=== PATIENT | male | born 1930 | race Caucasian/White ===

== ENCOUNTER 2018-10-04 21:19 | Inpatient (IN) ==
[2018-10-04 22:23] LABS: BASO# 0.03 X1000 (0.0-0.2); BASO% 0.4 % (0.0-0.8); EOS# 0.19 X1000 (0.0-0.7); EOS% 2.6 % (0.0-10.0); HEMATOCRIT 41.8 % (42.0-52.0); HEMOGLOBIN 12.7 g/dL (14.0-18.0); IMM GRAN# 0.02 X1000 (0.0-0.04); IMM GRAN% 0.3 % (0.0-0.5); LYMPH# 1.84 X1000 (1.2-3.4); MCH 29.2 PG (27-31); MCHC 30.4 g/dL (33-37); MCV 96.1 FL (81-99); MONO# 0.74 X1000 (0.11-0.59); MONO% 10.1 % (1.7-9.3); MPV 10.1 FL (7.4-10.4); NEUT# 4.54 X1000 (1.4-6.5); NEUT% 61.6 % (42.2-75.2); PLT 191 X1000 (130-400); RBC 4.35 XMIL (4.7-6.1); RDW 13.6 % (11.5-14.5); WBC 7.36 X1000 (4.8-10.8)
[2018-10-04 22:32] LABS: ALB/GLOB RATIO 0.9; CALCIUM 8.9 mg/dL (8.8-10.2); CREATININE 1.4 mg/dL (0.7-1.2); POTASSIUM 5.4 mmol/L (3.5-5.1); TOTAL BILIRUBIN 0.31 mg/dL (0.20-1.00); TOTAL PROTEIN 8.5 g/dL (6.3-8.3)
[2018-10-04] MEDS ORDERED: CLINDAMYCIN 900 MG/D5W 900 MG/50 ML IVPB IV ONE (23:00)
[2018-10-04] MEDS ORDERED: CLINDAMYCIN 900 MG/NS 900 MG/50 ML IVPB IV ONE (23:53)
[2018-10-04] MEDS ORDERED: LEVAQUIN 750 MG in NS 150 ML IV ONE (23:53)
[2018-10-05] MEDS ORDERED: LEVAQUIN 750 MG/D5W 750 MG/150 ML IVPB IV ONE (01:00)
--- NOTE | 2018-10-05 01:41 | PROVIDER DOCUMENTATION ---
This chart was entered by Flory Adame Scribe, acting as scribe for Cici Arboleda DO. HPI-General Adult - General Chief Complaint: General Adult Stated Complaint: HEEL INJURY Time Seen by Provider: 10/04/18 22:49 Source: patient Allergies/Adverse Reactions: Patient Allergies Allergy/AdvReac Type Severity Reaction Status Date / Time No Known Allergies Allergy Verified 10/12/16 12:42 Home Medications: Home Medication List Medication Instructions Recorded Confirmed Last Taken Type Aspirin EC 81 mg PO DAILY 10/16/13 10/12/16 10/12/16 History Losartan [Cozaar] 25 mg PO DAILY 10/12/16 10/12/16 10/12/16 History Arformoterol Neb [Brovana Neb] 15 microgm INH RTQ12H #60 neb 10/14/16 Unknown Rx Ipratropium Potter Neb [Atrovent 0.5 mg INH RTQ8H #90 neb 10/14/16 Unknown Rx Neb] - History of Present Illness -Gen Adult Nature of Presenting Problems: 87yom presents with L heel ulcer for one month. He reports that he scrapped his L heel a month ago, and it did not heal. He denies pain or any other injury. He is on oxygen via nasal cannula. He denies hx of diabetes. He reports his PCP as Dr. Kin Herrera. He denies fever, chills, nausea, vomiting, diarrhea, cp, and sob. The patient's and daughter are at bedside. Location of Pain/Injury: reports: lower extremity (L heel) Pain Radiation: reports: no radiation Quality of Pain: reports: none Severity: reports: mild Onset/Duration: reports: other (one month) Timing: reports: still present, constant Context/Activities at Onset: reports: none Modifying Factors: improves with: nothing Associated Symptoms: denies: chest pain, diarrhea, fever/chills, nausea, shortness of breath, vomiting Similar Symptoms Previously?: No Recently seen or treated by another doctor?: No Review of Systems - Adult - REVIEW OF SYSTEMS - ADULT Constitutional: denies: chills, fever Eyes: denies: discharge, dry eyes Ears, Nose, Mouth & Throat: denies: ear discharge, ear pain Cardiovascular: denies: chest pain, palpitations Respiratory: denies: cough, shortness of breath Gastrointestinal: denies: abdominal pain, diarrhea, nausea, vomiting Genitourinary: denies: dysuria, hematuria Musculoskeletal: reports: other (L heel ulcer). denies: back pain Integumentary: reports: no symptoms reported Neurological: denies: dizziness/vertigo, headache/migraines Psychiatric: reports: no symptoms reported Endocrine: reports: no symptoms reported Hematologic/Lymphatic: reports: no symptoms reported Allergic/Immunologic: reports: no symptoms reported All Other Systems: Reviewed and Negative Past History - Adult - PAST MEDICAL HISTORY-ADULT Review of Records: reports: Old Records Reviewed, Nursing Assessment Review, Medications Reviewed - PRIOR SURGERIES/PROCEDURES Surgical/Procedure History: reports: none - IMMUNIZATION STATUS Childhood Immunizations: See Nurse Assessment Flu Vaccine: See Nurse Assessment - FAMILY HISTORY Family History: reviewed, not pertinent - SOCIAL HISTORY Smoking: other (former) Substance Use: denies Living Situation: family Physical Exam-General - PHYSICAL EXAM-ADULT Initial Vital Signs Reviewed: Yes - CONSTITUTIONAL General Appearance: alert, no apparent distress - EYES Eyes: PERRL/EOMI, pink conjunctivae - NECK Neck: non-tender, supple - RESPIRATORY Respiratory: chest non-tender, lungs clear, normal breath sounds, no pleuratic chest pain, no respiratory distress, no accessory muscle use - CARDIOVASCULAR Cardiovascular: regular rate, rhythm, no JVD, no murmur - GASTROINTESTINAL (ABDOMEN) Abdominal Exam: normal bowel sounds, non tender, soft - LYMPHATIC Lymphatic: no adenopathy - MUSCULOSKELETAL Back Exam: normal inspection, no CVA tenderness, no vertebral tenderness Extremity: non-tender, swelling (LLE mild), other (L heel: foul smelling 1.5cm diameter oval draining ulcer, scaling on bilateral plantar surface.) Peripheral Pulses: dorsalis-pedis (R): 2+, dorsalis-pedis (L): 2+ - SKIN Integumentary: normal color, warm/dry - NEUROLOGIC Neurologic: grossly normal, no motor/sensory deficits - PSYCHIATRIC Psych/Mental Status: normal mood/affect, normal thought content, normal thought process, oriented x 3 Progress - PLAN OF CARE/RESULTS Progress/Plan/Lab Results: Vital Signs - 8 hr 10/04/18 21:56 Temperature 98.8 F Pulse Rate 89 Respiratory Rate 20 Blood Pressure 128/48 O2 Sat by Pulse Oximetry 93 L Laboratory Results - last 24 hr 10/04/18 10/04/18 22:00 22:00 WBC 7.36 RBC 4.35 L Hgb 12.7 L Hct 41.8 L MCV 96.1 MCH 29.2 MCHC 30.4 L RDW Std Deviation 13.6 Plt Count 191 MPV 10.1 Immature Gran % (Auto) 0.3 Neut % (Auto) 61.6 Lymph % (Auto) 25.0 Cowley % (Auto) 10.1 H Eos % (Auto) 2.6 Baso % (Auto) 0.4 Immature Gran # (Auto) 0.02 Neut # (Auto) 4.54 Lymph # (Auto) 1.84 Cowley # (Auto) 0.74 H Eos # (Auto) 0.19 Baso # (Auto) 0.03 Sodium 144 Potassium 5.4 H Chloride 101 Carbon Dioxide 34 Anion Gap 9 BUN 46 H Creatinine 1.4 H Estimated GFR/1.73 m2 48 BUN/Creatinine Ratio 33 Glucose 121 H Calculated Osmolality 300 Calcium 8.9 Total Bilirubin 0.31 AST 20 ALT 15 Alkaline Phosphatase 68 Total Protein 8.5 H Albumin 4.0 Globulin 4.5 Albumin/Globulin Ratio 0.9 Orders Category Date Time Status CBC WITH DIFF [HEME] Stat Lab 10/04/18 22:00 Completed CMP [COMPREHENSIVE METABOLIC PANEL] [CHEM] Stat Lab 10/04/18 22:00 Completed Clinically stable while here. Started on Levaquin and Clinda. No leucocytosis noted. I do not see obvious osteomyelitis on his xray. I feel he will need aggressive IV abx and is still high risk for worsening. He and family voiced understanding. He was admitted to the hospitalist service. Result Diagrams: 10/04/18 22:00 10/04/18 22:00 - XRAY 1 XRAY: Left XRAY Study: Foot Impression: Abnormal (No fracture, no obvious lytic lesions) Departure - Departure Date of Disposition Decision: 10/05/18 Time of Disposition Decision: 01:00 DIAGNOSIS: Foot ulcer Qualifiers: Laterality: left Non-pressure ulcer stage: with fat layer exposed Qualified Code(s): L97.522 - Non-pressure chronic ulcer of other part of left foot with fat layer exposed Disposition: ADMITTED INPATIENT 09 Certified Medical Emergency: Emergent Condition: Stable Additional Freetext Instructions: ED Follow Up Instructions: You have been treated by a care provider in the Emergency Department. These instructions are being provided to you so you can have an understanding of how to care for yourself upon discharge. Upon discharge from the Emergency Department, you are responsible for making arrangements for follow-up care by a physician of your choice. Take all prescribed medications as directed. Return to the Emergency Department immediately for any new or worsening symptoms. You may call the Physician Referral phone number at [phone] to obtain a list of Physicians who are taking new patients. Referrals and Follow-Ups: Christ Herrera MD [Primary Care Provider] - - Critical Care Note This patient required my direct & personal management of CC.: No Attestation - Physician/ SAI Attestation Patient care was provided by Advanced Practice Provider:: No The physician spent face to face time with patient:: Yes Advanced Practice Provider documentation review:: Supervising physician onsite and consulted in the evaluation and care of this patient. The physician did have a face to face encounter with the patient. This chart was documented by the indicated scribe, (Flory Adame Scribe) and accurately reflects the services I performed and decisions made by me, Cici Arboleda DO, as attested by the provider's signature.
[2018-10-05] MEDS: DUONEB (A & A) INH SCH ×3 (03:51→11:10)
[2018-10-05] MEDS ORDERED: NS 1,000 ML IV ONE (03:51)
[2018-10-05] MEDS ORDERED: TYLENOL PO PRN (03:51)
[2018-10-05] MEDS ORDERED: ZOFRAN IV PRN (03:51)
--- NOTE | 2018-10-05 05:37 | HISTORY AND PHYSICAL ---
PRIMARY CARE PHYSICIAN: Dr. Gene Herrera. CHIEF COMPLAINT: Heel decubitus. HISTORY OF PRESENTING ILLNESS: An 87-year-old male with a history of hypertension, COPD on home oxygen, who had presented to the emergency department with a complaint of worsening pain and drainage from a heel ulcer on his left foot. Apparently, he states that it has started having some foul order to it, and was oozing. He was evaluated in the emergency department, and due to his presenting symptoms, it was thought that he would need admission for further management. At the time of my examination, he denied any headache, fever, chills, chest pain, shortness of breath, hemoptysis, or any weight changes, but complained of heel draining. PAST MEDICAL HISTORY: Includes hypertension, COPD. PAST SURGICAL HISTORY: Partial right lobectomy, left knee surgery, hernia repair. ALLERGIES: No known drug allergies. CURRENT MEDICATIONS: As listed in the medication reconciliation sheet. SOCIAL HISTORY: No history of alcohol or illicit drug use. FAMILY HISTORY: Positive for coronary disease in mother. REVIEW OF SYSTEMS: Fourteen point review of systems listed as in HPI. Other systems negative. PHYSICAL EXAMINATION: GENERAL: Cooperative, friendly elderly male. He is resting comfortably now. VITAL SIGNS: Temperature 98.8 degrees, pulse 89, respirations 20, blood pressure 128/48. HEENT: Atraumatic, normocephalic. Extraocular movements intact. PERRLA. NECK: Supple. CHEST: Clear to auscultation. CARDIOVASCULAR: Regular rate and rhythm. ABDOMEN: Soft. Positive bowel sounds. EXTREMITIES: Left heel has a stage III decubitus. : No bladder distention. NEUROLOGIC: Nonfocal. SKIN: Warm. LABORATORIES AND STUDIES: WBCs 7.36, hemoglobin 12.7, hematocrit 41.8 platelets 191. Sodium 144, potassium 5.4, chloride 101. CO2 is 34, BUN is 46, creatinine is 1.4. Glucose 121. ASSESSMENT: An 87-year-old male with a history of hypertension and COPD, who had presented to the emergency department with 6 weeks' history of worsening pain and drainage from his left heel. He was evaluated in the emergency department, and due to his presenting symptoms, he will need admission for further management. ASSESSMENT: 1. Left heel decubitus. 2. Chronic obstructive pulmonary disease. 3. Hypertension. PLAN: 1. We will admit patient to medical floor with telemetry. 2. We will continue with wet-to-dry dressings. 3. We will consult General Surgery for possible debridement. 4. Will continue patient on IV antibiotics. 5. Continue with DuoNebs and supplemental oxygen. 6. We will monitor blood pressure closely. 7. Will put patient on DVT prophylaxis with heparin. 8. We will continue to follow and reassess, and make further recommendation based on patient's clinical course. cc: Larry Mayorga MD
--- NOTE | 2018-10-05 06:07 | Diag Imaging Result Doc PS360 ---
EXAM: FOOT 2 VIEWS LEFT HISTORY: FOOT ULCER. ?OSTEO TECHNIQUE: Left foot, two views COMPARISON: None. FINDINGS: No fracture. No dislocation. There is narrowing to the first metatarsal phalangeal joint. The bones are osteopenic. Tiny calcaneal bone spurs in the periosteal reaction. No definite bone erosion. IMPRESSION: No definite plain film evidence of osteomyelitis. If clinical suspicion persists an MRI is recommended. Electronically signed by Alli Taylor 10/05/2018 6:05 AM
--- NOTE | 2018-10-05 09:09 | PROGRESS NOTE ---
DATE: 10/05/2018 SUBJECTIVE: Mr. Philippe has a decubitus ulcer on the left heel which they first noticed 4 to 6 weeks ago. He has had increasing pain and purulent discharge from the wound. The plain film of the left foot demonstrated no bony changes suggestive of osteomyelitis. OBJECTIVE: Vital Signs: Temperature 98.1 degrees, pulse 81, respirations 20, BP 124/50. CV: Regular rate and rhythm with a 2/6 systolic ejection murmur at the left sternal margin. Lungs: Clear. Abdomen: Soft, nontender, with active bowel sounds. Extremities: He has a decubitus ulcer on the left heel with purulent discharge. ASSESSMENT AND PLAN: Nonhealing left decubitus ulcer of the left heel with associated cellulitis. We will obtain a wound culture in addition to blood cultures. I will check a magnetic resonance imaging of the left foot to make sure there is no evidence of osteomyelitis. I will change antibiotics from Levaquin to Zosyn 3.375 grams intravenous every 6 hours. We will consult Dr. Santoyo for consideration of debridement of the wound. If the magnetic resonance imaging of the foot is consistent with osteomyelitis, he will most likely need PICC line placement with intravenous antibiotic for 6 to 8 weeks. If there is no evidence of osteomyelitis, I am hoping that we will be able to discharge him home on oral antibiotics with outpatient wound care pending cultures. cc: Genet Herrera MD
[2018-10-05] MEDS: ZOSYN 3.375 GM in NS 50 ML IV SCH ×3 (09:17→22:51)
[2018-10-05] MEDS: HEPARIN SUBQ SCH ×2 (09:18→22:51)
--- NOTE | 2018-10-05 11:05 | Diag Imaging Result Doc PS360 ---
EXAM: MRI LOW EXT JT W/WO CON-LEFT INDICATION: left heel ulcer r o osteomyelitis TECHNIQUE: COMPARISON: None. FINDINGS: There is focal ulceration at the posterior aspect of the heel medially with surrounding edema and enhancement consistent with cellulitis. However, there is no underlying bone marrow edema to indicate osteomyelitis. There is no evidence of osteomyelitis involving the remaining visualized bony structures. There is soft tissue edema without enhancement at the dorsum of the forefoot. The visualized tendinous structures of the ankle and foot are grossly intact. IMPRESSION: Ulceration and edema at the posterior medial aspect of the heel indicating cellulitis but no evidence of osteomyelitis. Electronically signed by Zander Cade 10/05/2018 11:02 AM
[2018-10-05] MEDS ORDERED: SILVER NITRATE APPLICATOR ONE (12:39)
[2018-10-05] MEDS ORDERED: SILVER NITRATE APPLICATOR TOP ONE (12:41)
[2018-10-05 16:20] LABS: HEMOGLOBIN A1C 5.4 % (4.8-6.0)
[2018-10-05] MEDS ORDERED: ATROVENT NEB INH SCH (17:00)
[2018-10-05] MEDS: BROVANA NEB INH SCH (20:09)
[2018-10-05] MEDS ORDERED: BROVANA NEB ONE (20:11)
[2018-10-06] MEDS ORDERED: LEVAQUIN 500 MG/D5W 500 MG/100 ML IVPB IV SCH (02:00)
[2018-10-06] MEDS: ZOSYN 3.375 GM in NS 50 ML IV SCH ×4 (02:46→20:00)
--- NOTE | 2018-10-06 04:23 | OPERATIVE NOTE ---
PROCEDURE DATE: 10/05/2017 PREOPERATIVE DIAGNOSIS: Nonhealing left heel ulcer. POSTOPERATIVE DIAGNOSIS: Nonhealing left heel ulcer. PROCEDURE: Debridement of skin and subcutaneous tissue of less than 20 square cm. SURGEON: Dr. Rajendra Simmons. ANESTHESIA: None. ESTIMATED BLOOD LOSS: 10 mL. COMPLICATIONS: None apparent. FINDINGS: A 1 x 1 cm ulcer of the left medial heel without exposed bone, but there was some necrotic subcutaneous fat. TECHNIQUE: The wound was prepped with Betadine. A 10 blade and scissors were used to sharply debride the edges of the wound back to healthier bleeding edges. He tolerated this well. The wound was packed with gauze. There were no apparent complications. cc: MD Genet Franco MD
--- NOTE | 2018-10-06 04:36 | GENERAL SURGERY CONSULTATION ---
DATE: 10/05/2018 REASON FOR CONSULT: Left heel ulcer. HISTORY OF PRESENT ILLNESS: This is an 87-year-old male who injured his left heel stepping out of his shower about 6 weeks ago. It has not healed. It has been having minimal drainage, but it does have some odor. He has not had really any significant redness or swelling from the wound. He saw Dr. Wang who performed a debridement, but had not had any followup with him. PAST MEDICAL HISTORY: Hypertension COPD, right lung cancer. PAST SURGICAL HISTORY: Right lower lobectomy, left knee replacement, inguinal hernia repair. ALLERGIES: No known drug allergies. SOCIAL HISTORY: Negative tobacco, alcohol, or illicit drug use. FAMILY HISTORY: Positive for coronary artery disease. HOME MEDICATIONS: Aspirin, Atrovent. REVIEW OF SYSTEMS: Ten systems reviewed and negative except as noted above. PHYSICAL EXAMINATION: Vital Signs: Temperature 98.1 degrees, pulse 81, respirations 20, blood pressure 124/50, O2 saturation 95%. General: Elderly male who looks his stated age, in no acute distress. HEENT: Normocephalic, atraumatic. Extraocular muscles intact. Pupils equal, round, and reactive to light. Sclerae anicteric. Neck: Supple. No thyromegaly. Cardiovascular: Regular rate and rhythm. Respiratory: Bilaterally equal breath sounds. No work of breathing. Gastrointestinal: Soft, nontender, nondistended. No organomegaly. Musculoskeletal: Moves all extremities equally and well. Skin: Warm and dry. No rash. Extremities: The left heel has an open wound with some slight odor to it, and seropurulent discharge. I probed the wound. It does not probe all the way down to the bone, but it is into the subcutaneous fatty layer. LABORATORY DATA: White cell count 7. IMAGING: Left foot x-ray and MRI reveal ulceration and cellulitis, but no osteomyelitis. ASSESSMENT AND PLAN: An 87-year-old male with left heel ulcer which is nonhealing, chronic obstructive pulmonary disease, and hypertension. I will debride the wound at the bedside today. We will follow up the cultures that have already been obtained and make recommendations for antibiotics with him to go home. I suspect oral antibiotics will be sufficient. We will start silver alginate gauze packing for now. cc: MD Genet Franco MD
[2018-10-06] MEDS ORDERED: BROVANA NEB ONE ×2 (07:18)
[2018-10-06 07:30] LABS: BASO# 0.03 X1000 (0.0-0.2); BASO% 0.4 % (0.0-0.8); EOS% 2.4 % (0.0-10.0); HEMATOCRIT 41.5 % (42.0-52.0); HEMOGLOBIN 12.5 g/dL (14.0-18.0); LYMPH# 2.11 X1000 (1.2-3.4); LYMPH% 25.8 % (20.5-51.1); MCH 28.7 PG (27-31); MCHC 30.1 g/dL (33-37); MCV 95.2 FL (81-99); MONO# 0.61 X1000 (0.11-0.59); MONO% 7.4 % (1.7-9.3); MPV 10.3 FL (7.4-10.4); NEUT# 5.24 X1000 (1.4-6.5); PLT 194 X1000 (130-400); RBC 4.36 XMIL (4.7-6.1); RDW 13.8 % (11.5-14.5); WBC 8.19 X1000 (4.8-10.8)
[2018-10-06 07:51] LABS: CALCIUM 9.2 mg/dL (8.8-10.2); CREATININE 1.4 mg/dL (0.7-1.2); POTASSIUM 4.5 mmol/L (3.5-5.1)
[2018-10-06] MEDS: BROVANA NEB INH SCH ×2 (08:28→19:10)
[2018-10-06] MEDS: ATROVENT NEB INH SCH ×3 (08:29→19:10)
--- NOTE | 2018-10-06 08:30 | PROGRESS NOTE ---
DATE: 10/06/2018 SUBJECTIVE: Mr. Philippe has a longstanding history of essential hypertension. His blood pressure is well controlled. Systolic blood pressures are ranging from 130 to 145, whereas his diastolic blood pressures are in the 70s and 80s. He denies any chest pain, palpitations, or anginal equivalents. He has a history of chronic respiratory failure with hypoxia on chronic home oxygen secondary to COPD. He is breathing comfortably. He is maintaining O2 sats of 93%-96% on 2 L of O2. He was admitted with a decubitus ulcer of the left heel with associated cellulitis. Dr. Simmons performed debridement of skin and subcutaneous tissue at the bed side. The swelling and erythema in the left foot and heel has diminished on IV Zosyn. Blood cultures are pending. Gram stain of the wound culture grew out gram-positive cocci. An MRI of the foot demonstrated no evidence of osteomyelitis. OBJECTIVE: Temperature 98.3, pulse 81, BP 132/59. CV: Regular rate and rhythm with a 2/6 systolic ejection murmur at the left sternal margin. Lungs: Distant breath sounds with increased period of expiration. Abdomen soft, nontender, with active bowel sounds. Extremities: There is an ulcer of the left heel. There is less erythema, swelling, and induration around the ulcer. ASSESSMENT AND PLAN: 1. Hypertension. His blood pressure is stable. We will continue losartan 25 mg daily. 2. Chronic respiratory failure with hypoxia secondary to chronic obstructive pulmonary disease. He is clinically stable. We will continue chronic home oxygen as well as Brovana and ipratropium nebulizer treatments. 3. Decubitus ulcer of the left heel with associated cellulitis. We will continue local wound care and will continue broad-spectrum IV antibiotics pending cultures. At the time of discharge, we will arrange for home health to provide local wound care, and he will follow up with Dr. Simmons at the [facility]. cc: Genet Herrera MD
[2018-10-06] MEDS: ASPIRIN EC PO SCH (09:28)
[2018-10-06] MEDS: HEPARIN SUBQ SCH ×2 (09:28→20:01)
[2018-10-06] MEDS: COZAAR PO SCH (09:28)
[2018-10-06] MEDS ORDERED: VANCOMYCIN 1 GM/NS 1 GM/250 ML IVPB IV ONE (11:52)
--- NOTE | 2018-10-06 23:44 | GENERAL SURGERY PROGRESS NOTE ---
DATE: 10/06/2018 SUBJECTIVE: The patient is doing well. No acute events or complaints overnight. Laboratory reviewed and unremarkable although his wound culture is positive for MRSA presumptively, the sensitivities of the antibiotics are not back yet OBJECTIVE: He is afebrile, vital signs are stable. General he is awake, alert, oriented x3. No acute distress.Extremities: The left heel ulcer was examined. There is minimal purulent drainage and some mild swelling around it. ASSESSMENT/PLAN: 87-year-old male with left heel ulcer positive for methicillin-resistant Staphylococcus aureus, we are awaiting sensitivity profile and will treat the wound with silver alginate gauze packing every other day at home and I will consult for home health. He can follow up with me in the [facility]. cc: MD Genet Franco MD
[2018-10-07] MEDS: ZOSYN 3.375 GM in NS 50 ML IV SCH ×2 (03:40→09:51)
[2018-10-07 08:05] VITALS: BP 144/61
[2018-10-07] MEDS: ATROVENT NEB INH SCH (08:30)
[2018-10-07] MEDS: BROVANA NEB INH SCH (08:30)
[2018-10-07] MEDS: HEPARIN SUBQ SCH (09:52)
[2018-10-07] MEDS: ASPIRIN EC PO SCH (09:52)
[2018-10-07] MEDS: COZAAR PO SCH (09:52)
[2018-10-07] MEDS ORDERED: TETRACYCLINE PO SCH (14:00)
[2018-10-07] MEDS ORDERED: SEPTRA DS PO SCH (21:00)
--- NOTE | 2018-10-07 22:29 | DISCHARGE SUMMARY ---
ADMISSION DATE: 10/05/2018 DISCHARGE DATE: 10/07/2018 DISCHARGE DIAGNOSES: 1. Stage III decubitus ulcer of the left heel with cellulitis. 2. Essential hypertension. 3. History of tobacco abuse. 4. Chronic respiratory failure with hypoxia, on chronic home O2 at 2 L per nasal cannula continuously. 5. Chronic obstructive pulmonary disease. DISCHARGE INSTRUCTIONS: 1. The patient is to return to clinic in 1 week to see me, Dr. Gene Herrera, in anticipation of a transition of care visit. 2. The patient is to follow up with Dr. Rajendra Simmons in 7 to 10 days at the wound Center. 3. Activity as tolerated. 4. Healthy heart diet. MEDICATIONS: O2 at 2 L per nasal cannula continuously, Brovana nebulized b.i.d., ipratropium nebulized t.i.d., losartan 25 mg daily, aspirin 81 mg daily, tetracycline 500 mg q.6 hours for 2 weeks. DISCHARGE PHYSICAL EXAMINATION: General: This is an elderly, frail, 87-year-old gentleman in no apparent distress. He is afebrile. Vital signs: Stable. Cardiovascular: Regular rate and rhythm with a 2/6 systolic ejection murmur. Lungs: Distant breath sounds with increased period of expiration. Abdomen: Soft, nontender, with active bowel sounds. Extremities: He has a stage III decubitus ulcer on the left heel. There is minimal if any discharge. The erythema and swelling around the wound have largely resolved. HOSPITAL COURSE: Mr. Alonzo Philippe was admitted to [facility] with a nonhealing decubitus ulcer of the left heel which was stage III. He had purulent gross discharge from the wound. Necrotic fat tissue was noted. The patient was placed on broad-spectrum antibiotics including Zosyn pending wound and blood cultures. Dr. Rajendra Simmons was consulted to see the patient and performed debridement at the bedside. Wound cultures grew out initially gram-positive cocci and I added vancomycin. The wound cultures demonstrated what appeared to be a community- acquired MRSA that was sensitive to multiple medications including vancomycin, clindamycin, gentamicin, tetracycline and Bactrim. Blood cultures x2 were normal. Daily wound care was provided while hospitalized. The wound was cleaned daily with Vashe and was packed with silver alginate gauze and rewrapped. He improved quickly with aggressive wound care and antibiotics and was transitioned to oral tetracycline. Cook Chef was consulted to see the patient. We have arranged for wound care. The wound was cleaned and repacked with a silver alginate gauze and rewrapped today. He will need to have the wound cleaned with Vashe every 2 days and the heel wound packed with silver alginate every 2 days. Dressing changes we will need to be made every 2 days. The next dressing change should occur on 10/09/2018. We will give him a prescription for tetracycline 500 mg q.6 hours for 2 weeks and he will follow up in the wound care clinic in 7 to 10 days. An MRI of the foot demonstrated no evidence of osteomyelitis. Mr. Philippe has a longstanding history of chronic respiratory failure with hypoxia secondary to COPD. He wears O2 at 2 L per nasal cannula continuously. He was maintained on his home oxygen with his home nebulizers including Brovana nebulized b.i.d. and ipratropium nebulized t.i.d. He maintained good O2 saturations of 92% to 95%. Having reached maximum hospital benefit, the patient was discharged in stable condition. cc: Genet Herrera MD
== END 2018-10-07 11:21 | disposition home health service (06) | DRG 571 ==
LOC: ED 21:19 → SUATTDRO 10-05 01:33 → EDIPHOLD 10-05 01:33 → 3N 10-05 12:45
PROVIDERS: ADMIT Internal Medicine; ATTEND Internal Medicine
CPT/HCPCS: 73620; 73723; 80048; 80053; 82948; 83036; 85025; 87040; 87070; 87077; 87186; 94640; 94761; 96361; 96365; 96367; 96372; 99285; A9270; A9579; J1644; J1956; J2543; J3370; J7030; S0077; XXXXX

== ENCOUNTER 2019-02-23 11:29 | Inpatient (IN) ==
[2019-02-23] MEDS ORDERED: LASIX IV ONE ×2 (13:07→15:37)
[2019-02-23] MEDS ORDERED: SODIUM CHLORIDE 0.9% INJ PRN (13:26)
[2019-02-23] MEDS ORDERED: TYLENOL PO PRN (13:26)
[2019-02-23] MEDS ORDERED: PHENERGAN IV PRN (13:26)
[2019-02-23 13:28] LABS: HEMATOCRIT 44.5 % (42.0-52.0); HEMOGLOBIN 12.9 g/dL (14.0-18.0); MPV 10.5 FL (7.4-10.4); RBC 4.45 XMIL (4.7-6.1); RDW 14.6 % (11.5-14.5); WBC 7.8 X1000 (4.8-10.8)
--- NOTE | 2019-02-23 13:28 | Diag Imaging Result Doc PS360 ---
EXAM: CHEST-PORTABLE HISTORY: acute COPD exacerbation TECHNIQUE: Portable chest COMPARISON: 02/22/2019 FINDINGS: There are tiny pleural effusions. Right hemidiaphragm is elevated. Mild central vascular distention with mild cardiac prominence. No consolidation. IMPRESSION: Mild pulmonary edema with tiny pleural effusions. Electronically signed by Alli Taylor 02/23/2019 1:26 PM
[2019-02-23 13:30] LABS: ALLEN TEST YES; BE 12.8 mmoll (-3.0-3.0); BLOOD TYPE ARTERIAL; HCO3-(ACT) 34.8 mmoll (20.0-26.0); METHB 1.1 % (0.0-1.5); O2(CT) 16.4 mL/dL (15.0-23.0); O2HB 91.2 % (95.0-99.0); PO2(98.6) 60 mmHg (60-100); SAMPLE BLOOD; SAO2 94.3 % (95.0-100.0); THB 12.8 g/dL (11.5-17.4); pH(98.6) 7.29 (7.35-7.45)
[2019-02-23 13:32] LABS: MODALITY CANNULA; PCO2(98.6) 90 mmHg (35-45)
[2019-02-23 13:43] LABS: AGAP 4; BUN 44 mg/dL (8-22); CALCIUM 9.5 mg/dL (8.8-10.2); CHLORIDE 101 mmol/L (98-107); COSMO 303; CREATININE 1.1 mg/dL (0.7-1.2); ESTIMATED GFR > 60; GLUCOSE 152 mg/dL (70-104); POTASSIUM 4.9 mmol/L (3.5-5.1); SODIUM 145 mmol/L (136-145); TCO2 40 mmol/L (25-35)
--- NOTE | 2019-02-23 14:49 | ECHO REPORT ---
ORDER DATE: 02/23/2019 INDICATION FOR THE STUDY: CHF. FINDINGS: 1. The right atrium appears normal in size. 2. Trace tricuspid regurgitation. RV systolic pressure of 30. 3. Normal RV size and systolic function. 4. No significant pulmonic insufficiency. 5. Normal left atrial size at 3.4 cm. 6. No mitral valve prolapse. Trace mitral regurgitation. No mitral stenosis. 7. Normal LV size, end-diastolic dimension of 4.5. Normal wall thicknesses with a posterior and interventricular septal wall thickness of 0.7 and 0.6 cm respectively. Normal LV systolic function. Estimated EF of 65% with normal wall motion. 8. Aortic valve opens well. It is trileaflet. There is no evidence of stenosis or insufficiency. 9. Aorta appears normal in visualized segments. 10. No pericardial effusion seen. cc: MD Genet Taylor MD
[2019-02-23] MEDS: ROCEPHIN 1 GM in NS 50 ML IV SCH (15:12)
[2019-02-23] MEDS: LOVENOX SUBQ SCH (15:13)
[2019-02-23] MEDS: ATROVENT NEB INH SCH ×2 (15:28→22:00)
[2019-02-23] MEDS: ZITHROMAX 500 MG/NS 500 MG/250 ML IVPB IV SCH (17:47)
[2019-02-23] MEDS: SOLU-MEDROL IV SCH (17:47)
[2019-02-23] MEDS ORDERED: CALMOSEPTINE OINTMENT TOP ONE (17:54)
[2019-02-23] MEDS ORDERED: BROVANA NEB ONE (19:34)
[2019-02-23] MEDS: BROVANA NEB INH SCH (20:15)
--- NOTE | 2019-02-23 20:17 | HISTORY AND PHYSICAL ---
CHIEF COMPLAINT: Shortness of breath. Mr. 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 He presented to the ER complaining of increasing shortness of breath, increasing work of breathing, nonproductive cough and lethargy. Family reported that he has been lethargic, difficult to arouse and confused at times. His O2 saturations have frequently dropped into the low 80s even on oxygen. Chest x-ray showed mild interstitial edema and chronic COPD type changes. Upon further questioning he has been sitting up in a chair to breathe, he has had increasing shortness of breath with activity that resolves with rest. He has had increasing peripheral edema. 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 PAST SURGICAL HISTORY: Tonsillectomy with adenoidectomy, appendectomy, inguinal hernia repair, left total knee, cataract surgery. ALLERGIES: SCAR inhibitors. MEDICATIONS: O2 at 3 L per nasal cannula continuously, Brovana nebulized b.i.d., ipratropium nebulized t.i.d. FAMILY HISTORY: Noncontributory. SOCIAL HISTORY: He is a former smoker. He does not consume alcohol. He lives at home with his spouse. REVIEW OF SYSTEMS: He has lost approximately 5 pounds.HEENT: Wears glasses. He is hard of hearing. CV: No chest pain, palpitations or anginal equivalents. Pulmonary: See HPI. Endocrine: No polyuria, no polydipsia. No cold or heat intolerance. Skin: No easy bruisability. : No leakage of urine with coughing or laughing. Neuro: No migraines or seizures. Psychiatric: No history of depression. This is a chronically ill-appearing 88-year-old gentleman in mild distress secondary to shortness of breath. Temperature 98.3 degrees, pulse 73, respiratory rate 22, BP 130/79. HEENT: Fundi with arteriolar wall thickening. Pupils equal, round, reactive to light. Extraocular eye movements intact. TMs without bullae. Neck: Supple. No masses, JVD or bruits. CV: Regular rate and rhythm. Lungs: Diffuse wheezing with forced expiration. There are crackles in the bases. Abdomen: Soft, nontender with active bowel sounds. Extremities: 2+ pitting edema bilaterally. and Rectal: Deferred. Neuro: Nonfocal various. LABS: Various laboratory studies were obtained. CBC demonstrated white count 7.8, hemoglobin 12.9, hematocrit 44.5 and a platelet count 143,000. Electrolytes demonstrated sodium 145, potassium 4.9, BUN 44, creatinine 1.1, glucose 152. ProBNP 150. Arterial blood gases demonstrate a pH of 7.29, PO2 60, bicarb 34, O2 saturation 94.3. ASSESSMENT AND PLAN: 1. Acute on chronic respiratory failure with hypercapnia secondary to acute chronic obstructive pulmonary disease exacerbation. I will admit the patient to [facility]. Because of the mental status changes, confusion and hypoxia I will begin BiPAP with a rate of 15/6, FiO2 40% and a respiratory rate of 14, we will continue Brovana nebulized b.i.d., ipratropium nebulized t.i.d. and begin IV Solu-Medrol as well as broad-spectrum IV antibiotics including Rocephin and Zithromax. I will bolus him with Lasix. I will most likely add Symbicort 160/4.5 two puffs b.i.d. 2. Physical debility. He is very weak. He has difficulty performing activities of daily living at home. I have spoken to his and daughter. We will consult [facility] for consideration of short-term rehab placement. Family is interested in [facility] rehab. 3. End-of-life issues. He does have a living will. In the event of a cardiopulmonary arrest, no heroic measures are to be undertaken. A no code blue level 1 has been established. 4. Given his comorbid conditions and clinical presentation, I believe admission to the hospital is both reasonable and necessary. Attempting to treat him as an outpatient would increase the risk for poor outcome such as . I anticipate that he will be in the hospital for at least 2 midnights and I will therefore place him in inpatient status. We will begin Lovenox 40 mg subcutaneously daily for DVT prophylaxis. cc: Genet Herrera MD
[2019-02-23] MEDS ORDERED: CALMOSEPTINE OINTMENT TOP PRN (20:32)
[2019-02-23] MEDS: CALMOSEPTINE OINTMENT TOP SCH (22:55)
[2019-02-24] MEDS ORDERED: LASIX IV ONE (09:07)
--- NOTE | 2019-02-24 09:33 | Diag Imaging Result Doc PS360 ---
EXAM: CHEST-PORTABLE HISTORY: COPD TECHNIQUE: Portable chest single view COMPARISON: 02/23/2019 FINDINGS: Poor inspiratory effort. The right hemidiaphragm is elevated. Mild vascular distention. Questionable tiny left pleural effusion versus pleural thickening. No consolidation. IMPRESSION: Stable chest Electronically signed by Alli Taylor 02/24/2019 9:31 AM
[2019-02-24] MEDS ORDERED: BROVANA NEB ONE ×2 (10:31→19:35)
[2019-02-24] MEDS: BROVANA NEB INH SCH ×2 (11:14→20:30)
[2019-02-24] MEDS: ATROVENT NEB INH SCH ×3 (11:15→20:30)
[2019-02-24 11:23] LABS: BLOOD TYPE ARTERIAL; SAMPLE BLOOD
[2019-02-24 11:24] LABS: ALLEN TEST YES; BE 17.2 mmoll (-3.0-3.0); HCO3-(ACT) 38.3 mmoll (20.0-26.0); PO2(98.6) 159 mmHg (60-100); SAO2 99.4 % (95.0-100.0); THB 11.5 g/dL (11.5-17.4); pH(98.6) 7.42 (7.35-7.45)
[2019-02-24 11:28] LABS: MODALITY BI PAP; PCO2(98.6) 69 mmHg (35-45)
[2019-02-24] MEDS: ASPIRIN EC PO SCH (11:28)
[2019-02-24] MEDS: CALMOSEPTINE OINTMENT TOP SCH ×4 (11:28→22:14)
[2019-02-24] MEDS: SOLU-MEDROL IV SCH ×3 (11:29→22:09)
[2019-02-24] MEDS: LOVENOX SUBQ SCH (18:09)
[2019-02-24] MEDS: SYMBICORT 160/4.5 MICROGM INHALER INH SCH (20:30)
[2019-02-24] MEDS: ZITHROMAX 500 MG/NS 500 MG/250 ML IVPB IV SCH (22:08)
[2019-02-24] MEDS: ROCEPHIN 1 GM in NS 50 ML IV SCH (22:09)
[2019-02-25] MEDS ORDERED: BROVANA NEB ONE (07:39)
--- NOTE | 2019-02-25 07:40 | PROGRESS NOTE ---
DATE: 02/24/2019 SUBJECTIVE: Mr. Philippe was admitted to [facility] with acute on chronic respiratory failure with hypercapnia secondary to acute COPD exacerbation and pulmonary edema. ABGs demonstrated a pCO2 of 90. We placed him on BiPAP. He is much more alert this morning. He answers questions appropriately. He is oriented to name, place, and time. He is back to his baseline neurologically. OBJECTIVE: Vital Signs: O2 saturations are ranging from 96% to 97% on supplemental O2, temperature 98.6 degrees, pulse 69, respirations 18, BP 133/57. CV: Regular rate and rhythm. Lungs: Distant breath sounds with increased period of expiration. Abdomen: Soft, nontender, with active bowel sounds. Extremities: There is 1+ pitting edema. ASSESSMENT AND PLAN: 1. Acute on chronic respiratory failure with hypercapnia secondary to acute chronic obstructive pulmonary disease exacerbation and acute pulmonary edema. His echocardiogram was grossly normal. We will continue a salt and fluid restricted diet, and I will bolus him with Lasix 40 mg intravenously x1 dose today. We will continue Brovana nebulized twice daily, ipratropium nebulized three times daily, intravenous Solu-Medrol, and I will add Symbicort 160/4.5 two puffs twice daily. I am going to recheck an ABG this morning. If the hypercapnia has resolved, we will try to leave him off bilevel positive airway pressure during the day, and only use bilevel positive airway pressure at night. 2. Physical debility. We will consult Physical Therapy for evaluation. We will consult [facility] for short-term rehab placement. cc: Genet Herrera MD
[2019-02-25 08:16] LABS: CALCIUM 8.6 mg/dL (8.8-10.2); CREATININE 1.2 mg/dL (0.7-1.2); POTASSIUM 5.2 mmol/L (3.5-5.1)
[2019-02-25] MEDS: SYMBICORT 160/4.5 MICROGM INHALER INH SCH ×2 (09:05→19:35)
[2019-02-25] MEDS: BROVANA NEB INH SCH ×2 (09:05→19:35)
[2019-02-25] MEDS: ATROVENT NEB INH SCH ×3 (09:06→19:35)
[2019-02-25] MEDS: ATROVENT NEB ONE ×2 (09:06→09:07)
[2019-02-25] MEDS: ASPIRIN EC PO SCH (09:48)
[2019-02-25] MEDS: CALMOSEPTINE OINTMENT TOP SCH ×4 (09:49→20:24)
--- NOTE | 2019-02-25 10:01 | Diag Imaging Result Doc PS360 ---
EXAM: CHEST-PORTABLE HISTORY: COPD TECHNIQUE: Chest single view COMPARISON: 02/24/2019 FINDINGS: The right hemidiaphragm is elevated. No cardiomegaly. There are increased interstitial markings in the lower left lung. Minimal vascular distention. IMPRESSION: There appears to be a small left basilar infiltrate. Electronically signed by Alli Taylor 02/25/2019 9:59 AM
--- NOTE | 2019-02-25 10:28 | PROGRESS NOTE ---
DATE: 02/25/2019 SUBJECTIVE: Mr. Philippe was admitted to [facility] with acute on chronic respiratory failure with hypercapnia secondary to acute chronic obstructive pulmonary disease exacerbation. He has been wearing BiPAP at night. He is much more alert and easily arousable this morning. He is alert and oriented to name, place, and time. He answers questions appropriately. He wore BiPAP for 5 hours last night. He has been off the BiPAP for approximately 4 hours. He has been breathing comfortably on supplemental O2. OBJECTIVE: O2 saturations are 94% to 95% on 4 L of O2. He is not having any significant cough. He is afebrile. Pulse 88, respirations 16, BP 128/57. Cardiovascular: Regular rate and rhythm. Lungs: Distant breath sounds with increased period of expiration. Abdomen: Soft, nontender, with active bowel sounds. Extremities: 1+ pitting edema. ASSESSMENT AND PLAN: Acute on chronic respiratory failure with hypercapnia secondary to acute chronic obstructive pulmonary disease exacerbation. We will continue Brovana nebulized b.i.d., ipratropium nebulized t.i.d., Symbicort 160 mcg/4.5 mcg 2 puffs b.i.d. and supplemental O2. I will reduce IV Solu-Medrol to 40 mg IV q.12 h. We will continue to increase activity. We will continue physical therapy. We are awaiting short-term rehabilitation placement. cc: Genet Herrera MD
[2019-02-25] MEDS: LOVENOX SUBQ SCH (14:04)
[2019-02-25] MEDS: SOLU-MEDROL IV SCH ×2 (14:05→20:24)
[2019-02-25] MEDS: MELATONIN PO SCH (20:24)
[2019-02-25] MEDS: ROCEPHIN 1 GM in NS 50 ML IV SCH (20:24)
[2019-02-25] MEDS: ZITHROMAX 500 MG/NS 500 MG/250 ML IVPB IV SCH (20:25)
[2019-02-26] MEDS: SOLU-MEDROL IV SCH ×2 (05:55→18:09)
[2019-02-26] MEDS ORDERED: BROVANA NEB ONE (07:28)
[2019-02-26] MEDS: CALMOSEPTINE OINTMENT TOP SCH ×4 (08:00→21:54)
[2019-02-26] MEDS: SYMBICORT 160/4.5 MICROGM INHALER INH SCH ×2 (08:20→20:01)
[2019-02-26] MEDS: BROVANA NEB INH SCH ×2 (08:20→20:01)
[2019-02-26] MEDS: ATROVENT NEB INH SCH ×3 (08:20→20:01)
--- NOTE | 2019-02-26 09:35 | PROGRESS NOTE ---
DATE: 02/26/2019 SUBJECTIVE: Mr. Philippe was admitted to [facility] with acute on chronic respiratory failure with hypercapnia secondary to acute chronic obstructive pulmonary disease exacerbation and pulmonary edema. Clinically, he continues to improve. He is awake and easily arousable. He is oriented to name and place. He is breathing much more comfortably. O2 saturations are ranging from 95% to 98% on 3 L. Chest x-ray shows chronic COPD type changes. He is wearing the BiPAP at night. OBJECTIVE: Vital Signs: He is afebrile. Pulse 78, respirations 17, blood pressure 135/65. Cardiovascular: Regular rate and rhythm. Lungs: Distant breath sounds with increased period of expiration. Abdomen: Soft, nontender, with active bowel sounds. No hepatosplenomegaly. No abdominal bruits. ASSESSMENT AND PLAN: Acute on chronic respiratory failure with hypercapnia secondary to acute chronic obstructive pulmonary disease exacerbation. Clinically, he is better. We will continue O2 to maintain O2 saturations greater than 90%. We will continue Brovana, ipratropium and Symbicort. I will titrate downward on the methylprednisolone to 40 mg IV q.12 hours. cc: Genet Herrera MD
[2019-02-26] MEDS: ASPIRIN EC PO SCH (09:50)
[2019-02-26] MEDS: LOVENOX SUBQ SCH (13:22)
[2019-02-26] MEDS: ZITHROMAX 500 MG/NS 500 MG/250 ML IVPB IV SCH (22:13)
[2019-02-26] MEDS: MELATONIN PO SCH (22:16)
[2019-02-26] MEDS: ROCEPHIN 1 GM in NS 50 ML IV SCH (22:17)
[2019-02-27] MEDS: SOLU-MEDROL IV SCH (06:36)
[2019-02-27] MEDS ORDERED: BROVANA NEB ONE (07:22)
[2019-02-27 07:45] VITALS: BP 136/70
[2019-02-27] MEDS: ATROVENT NEB INH SCH (09:07)
[2019-02-27] MEDS: BROVANA NEB INH SCH (09:07)
[2019-02-27] MEDS ORDERED: LEVAQUIN PO SCH (09:15)
[2019-02-27] MEDS ORDERED: PREDNISONE PO SCH (09:15)
--- NOTE | 2019-02-27 09:23 | PROGRESS NOTE ---
DATE: 02/27/2019 SUBJECTIVE: Mr. Kennedy was admitted to [facility] with acute on chronic respiratory failure with hypercapnia secondary to acute chronic obstructive pulmonary disease exacerbation. He is still wearing BiPAP at night. He remains off BiPAP throughout the day. He is breathing comfortably. O2 saturations are ranging from 96% to 98% on 3 L of O2. He does not have any persistent cough or shortness of breath with activities of daily living. He is awake and easily arousable. He is oriented to name, place, and time. OBJECTIVE: Vital Signs: Temperature 98.2 degrees, pulse 83, respirations 22, BP 136/70. CV: Regular rate and rhythm. Lungs: Distant breath sounds with increased period of expiration. Abdomen: Soft, nontender, with active bowel sounds. ASSESSMENT AND PLAN: Acute on chronic respiratory failure with hypercapnia secondary to acute chronic obstructive pulmonary disease exacerbation. He is back to his baseline. We will continue Symbicort 160/4.5 two puffs b.i.d., Brovana nebulized b.i.d. and ipratropium nebulized t.i.d., as well as supplemental O2. We will transition him off IV antibiotics. We will also stop the steroids intravenously. I will transition him to oral Levaquin, as well as a prednisone taper. We will continue to increase activity and continue physical therapy. Referral has been made to [facility] for short-term rehab placement. cc: Genet Herrera MD
[2019-02-27] MEDS: SYMBICORT 160/4.5 MICROGM INHALER INH SCH (09:35)
[2019-02-27] MEDS: ASPIRIN EC PO SCH (09:43)
[2019-02-27] MEDS: CALMOSEPTINE OINTMENT TOP SCH ×2 (09:43→13:37)
--- NOTE | 2019-02-27 10:07 | DISCHARGE SUMMARY ---
ADMISSION DATE: 02/23/2019 DISCHARGE DATE: 02/27/2019 DISCHARGE DIAGNOSES: 1. Metabolic encephalopathy. 2. Acute respiratory failure with hypercapnia superimposed on chronic respiratory failure 3. Chronic respiratory failure with hypoxia 4. Acute chronic obstructive pulmonary disease exacerbation. 5. History of tobacco abuse. 6. Mild cognitive impairment. 7. Insomnia. 8. No code blue level 1. DISCHARGE INSTRUCTIONS: 1. The patient will be transferred via private car to [facility] in order to undergo short- term rehab. 2. Activity as tolerated. 3. Healthy heart diet. MEDICATIONS: 1. O2 at 3 L per nasal cannula continuously. 2. Brovana nebulized b.i.d. 3. Ipratropium nebulized t.i.d. 4. Symbicort 160/4.5 two puffs b.i.d. 5. Aspirin 81 mg daily. 6. Melatonin 10 mg at night. DISCHARGE EXAMINATION: General: This is a chronically ill-appearing 88-year-old gentleman in no apparent distress. Vital signs: He is afebrile. Vital signs are stable. CV: Regular rate and rhythm. Lungs: Distant breath sounds with increased period of expiration. Abdomen: Soft, nontender with active bowel sounds. No hepatosplenomegaly. No abdominal bruits. Extremities: Trace ankle edema. ASSESSMENT AND PLAN: Mr. Alonzo Philippe was admitted to [facility] with altered mental status. He was noted to have low oxygen levels of 81% on oxygen. A follow up ABG demonstrated crossed gases with a pCO2 of 90. We felt that he had acute respiratory failure with hypercapnia superimposed on chronic respiratory failure with hypoxemia. We placed him on BiPAP. We continued Brovana nebulized b.i.d., ipratropium nebulized t.i.d., and added IV Solu-Medrol as well as broad- spectrum antibiotics including Rocephin and Zithromax. With aggressive medical therapy and pulmonary toilet, his mental status improved. We felt that the encephalopathy was due to the hypercapnia. We gradually weaned him off the BiPAP during the day, and he wore the BiPAP at night in order to rest him. We continued his nebulizer treatments, added Symbicort, and over his hospitalization weaned him off IV antibiotics and steroids. We added Symbicort 160/4.5 two puffs b.i.d. He was ambulating in the halls without significant shortness of breath or periods of hypoxia. He was back to his baseline neurologically. He was awake and easily arousable. He was oriented to name, place, and time. We will continue O2 at 3 L per nasal cannula, Symbicort 160/4.5 two puffs b.i.d., Brovana nebulized b.i.d. and ipratropium nebulized t.i.d. He will complete an additional 5 day course of oral Levaquin. Mr. Philippe also has a history of mild cognitive impairment which we felt was exacerbated by the hypercapnia. Given his age and overall health, we felt that the potential side effects of medicines like Aricept outweighed the potential benefits of those medicines, and we decided not to begin Aricept. Mr. Philippe does have a living will. He has asked that in the event of a cardiopulmonary arrest that no heroic measures should be undertaken. A no code blue level 1 was established. Having reached maximum hospital benefit, the patient was discharged in stable condition. cc: Genet Herrera MD
[2019-02-27] MEDS ORDERED: CITRATE OF MAGNESIA PO ONE (12:01)
[2019-02-27] MEDS: LOVENOX SUBQ SCH (13:30)
== END 2019-02-27 15:16 | DRG 190 ==
LOC: SUPCPDRO → ED 11:29 → 3N 13:27
PROVIDERS: ADMIT Internal Medicine; ATTEND Internal Medicine
CPT/HCPCS: 71010; 71020; 71045; 71046; 80048; 82805; 83880; 85027; 93005; 93306; 94640; 94660; 94761; 97163; 99285; A9270; C8929; J0456; J0696; J1650; J1940; J2920; J2930; J7506; J7512; Q9957